=== PATIENT | female | born 1985 | race Asian ===

== ENCOUNTER 2019-01-13 20:49 | Emergency (ER) | payer OTHER ==
[~2019-01-13] VITALS: Ht 167.6 cm; Wt 68.0 kg
[2019-01-13 21:10] LABS: URINE BILIRUBIN NEGATIVE (Negative); URINE BLOOD NEGATIVE (Negative); URINE CLARITY CLEAR; URINE COLOR YELLOW; URINE GLUCOSE-RANDOM* NEGATIVE (Negative); URINE KETONES NEGATIVE (Negative); URINE LEUKOCYTES-REFLEX NEGATIVE (Negative); URINE NITRITE-REFLEX NEGATIVE (Negative); URINE PROTEIN (DIPSTICK) NEGATIVE (Negative); URINE SPECIFIC GRAVITY 1.025 (1.005-1.035); URINE UROBILINOGEN 0.2 E.U./dl (0.2-1.0)
[2019-01-13 22:23] LABS: BASOPHILS 0.2 % (0.0-2.0); EOSINOPHILS 0.7 % (0.0-3.0); HEMOGLOBIN 13.8 gm/dL (12.0-15.0); LYMPHOCYTES 13.1 % (24.0-44.0); MCH 31.3 pg (26.0-34.0); MCHC 33.6 g/dL (28.0-37.0); MCV 93.1 fL (80.0-100.0); MONOCYTES 5.3 % (1.0-8.0); PLATELET COUNT 212 thou/uL (150-400); POLYS 80.7 % (36.0-66.0); RDW 12.3 % (10.5-14.5); WBC 16.1 thou/uL (4.0-11.0)
[2019-01-13 22:34] LABS: CALCIUM 9.2 mg/dL (8.5-10.1); CREATININE 0.9 mg/dL (0.6-1.0); POTASSIUM 3.9 mmol/L (3.5-5.1)
[2019-01-13 22:41] LABS: ALBUMIN 4.3 g/dL (3.4-5.0); TOTAL BILIRUBIN 1.3 mg/dL (<0.1-1.0)
[2019-01-14 00:46] VITALS: BP 122/76
== END 2019-01-14 00:52 | disposition home or self-care (01) ==
LOC: ER 20:49
PROVIDERS: Emergency Medicine; Nurse Practitioner Family
DX: K80.50 Calculus of bile duct without cholangitis or cholecystitis without obstruction (principal); D72.829 Elevated white blood cell count, unspecified; R10.13 Epigastric pain; Z88.7 Allergy status to serum and vaccine

== ENCOUNTER 2019-03-06 10:31 | Day surgery (SDC) | payer OTHER ==
[~2019-03-06] VITALS: Ht 167.6 cm; Wt 63.0 kg
--- NOTE | ~2019-03-06 | O ---
[facility] [place] [address] OPERATIVE REPORT Name: MERLENE MARIEE Room #: [address] [place] [address] M.R.#: [id number] Admission: 03/06/19 ������������������ Attend Phys: Jackson Arellano MD Discharge: ������������������ Date of : 85 Report #: [id number] THIS REPORT FOR: //name// CC: Mariel Samuel [facility] physician/PCP Jackson Arellano DATE OF SERVICE: 03/06/2019 PREOPERATIVE DIAGNOSIS: Symptomatic cholelithiasis. POSTOPERATIVE DIAGNOSIS: Symptomatic cholelithiasis. OPERATIVE PROCEDURE DONE: Laparoscopic cholecystectomy. OPERATING SURGEON: Jackson Arellano MD INDICATIONS FOR THE PROCEDURE: The patient is a 34-year-old female who presented with features of recurrent episodes of right upper quadrant pain. Clinical exam and ultrasound showed features suggestive of symptomatic cholelithiasis. The patient was advised laparoscopic cholecystectomy. The patient showed understanding and agreed to proceed. DESCRIPTION OF PROCEDURE: After explaining to the patient in detail and informed consent was obtained, the patient was identified in the preoperative holding area. The patient was transferred to the operating room and was placed in supine position. Sequential compression devices were placed for DVT prophylaxis. Preoperative antibiotics were given. After induction of anesthesia, the abdomen was prepped and draped in a sterile fashion. Through a right upper quadrant 1 cm incision and using Optiview technique, peritoneal cavity was entered and pneumoperitoneum was created. Thereafter, under direct vision, another 5 mm trocar was placed through a supraumbilical incision, another 5 mm trocar was placed in the epigastrium and one in the right lateral subcostal region. Upon initial inspection, the gallbladder was retracted and the peritoneal reflections along the neck of the gallbladder were gently dissected off. Cystic duct was identified and isolated from the surrounding structures. Cystic artery was identified and isolated from the surrounding structures. Cystic duct was then doubly clipped proximally and single clipped applied distally and was then divided. Cystic artery also was then divided in a similar fashion. The gallbladder was gently dissected off the liver bed using hook electrocautery. Absolute hemostasis was achieved. Thorough saline irrigation was given. The gallbladder was retrieved using an EndoCatch through the lateral most incision. Incisions were then closed with 4-0 Monocryl. Dermabond was applied. Approximately 10 mL of lidocaine and Marcaine mix was injected into all the incisions. The patient was awoken from anesthesia and was transferred to the recovery room in stable condition. [address] [address] OPERATIVE REPORT Name: MERLENE MARIEE Room #: 150-1 [facility] M.R.#: [id number] Admission: 03/06/19 ������������������ Attend Phys: Jackson Arellano MD Discharge: ������������������ Date of : 85 Report #: [id number] ESTIMATED BLOOD LOSS: Approximately 20 mL. CONDITION OF THE PATIENT: Stable. FLUIDS GIVEN: Per anesthesia notes. SPECIMEN SENT: Gallbladder. COMPLICATIONS: None. ANESTHESIA: General anesthesia. ��������������������������������������������� ���������������������������������������� By: ��������������������������������������������� 1434 1513 Jackson Arellano MD /nt
[~2019-03-06 10:31] MED LIST: DEPO-PROVER150 MG/M1 IM; IBUPROFEN 400400 M2 PO
[2019-03-06 11:42] VITALS: BP 112/61
[2019-03-06 15:33] VITALS: BP 112/61
--- NOTE | 2019-03-10 13:07 | PATH ---
[facility] [address] [address] PATHOLOGY RPT PROCEDURE Name: GIULIA MARIEE Room #: DEP [facility] M.R.#: [id number] ������������������ Admission: 03/06/19 ������������������ Date of : 85 Discharge: 03/07/19 Report #: [id number] Path Case #: [id number] [facility] Accession Number: [id number] . 01 Material submitted: . gallbladder - GALLBLADDER . 01 Clinical history: . Calculus of gallbladder without cholecystitis without obstruction . 02 Diagnosis: Gallbladder, cholecystectomy: - Mild chronic cholecystitis. - Cholelithiasis. (IUV/db; 03/09/2019) LBQ 03/09/2019 1541 Local . 02 Electronically signed: . Odilia Wan MD, Pathologist NPI- [id number] . 01 Gross description: . The specimen is received in formalin, labeled "Giulia Stenelli, gallbladder". Received is an intact gallbladder measuring 8.3 x 2.8 x 2.6 cm in greatest dimensions displaying a blue-boyd serosal surface. Opening the specimen reveals a velvety, bile-stained mucosa with a gallbladder wall thickness of 0.1 cm. Calculi are present displaying a dark green and multifaceted appearance, and no masses or lesions are noted grossly. Cloth Coverer sections, to include the proximal margin, are submitted in cassette A1. ([facility]; 03/08/2019) QA/[facility] 03/08/2019 08 Local . 02 Pathologist provided ICD-10: K80.10 . 02 CPT . 925609 Specimen Comment: A courtesy copy of this report has been sent to Specimen Comment: [phone], . Specimen Comment: Report sent to / DR CARPENTER Performed at: [address] [id number] MD Kyrie Jeffrey MD Phone: [phone] Performed at: [address] [address] PATHOLOGY RPT PROCEDURE Name: GIULIA MARIEE Room #: DEP [facility] M.R.#: [id number] ������������������ Admission: 03/06/19 ������������������ Date of : 85 Discharge: 03/07/19 Report #: [id number] Path Case #: [id number] [address] [place] [id number] MD Odilia Wan MD Phone: [phone]
== END 2019-03-07 16:50 | disposition home or self-care (01) ==
LOC: OR 10:31 → TBA 10:36 → OR 12:00
DX: K80.20 Calculus of gallbladder without cholecystitis without obstruction (principal); Z98.890 Other specified postprocedural states
CPT/HCPCS: 50010; 50101; 50411; 50555; 51489; 52265; 52266; 54022; 54118; 55245; 56462; 56525; 56526; 57257; 62110; 62900; 70005